=== PATIENT | male | born 1985 | race Caucasian/White ===

== ENCOUNTER 2016-08-22 21:54 | Emergency (ER) | payer SELFPAY ==
[2016-08-22 22:03] VITALS: BP 171/83
--- NOTE | 2016-08-23 00:44 | ED ---
mahamed Kumar Timothy, scribed for Shankar Zaragoza MD on 08/23/16 at 0032 . Throat Pain/Nasal Congestion - HPI Summary HPI Summary: Abrahan Tran is a 31 yo male presenting to [facility] with a food bolus in his throat made of chicken since 1830 today. Pt states he has had this "kind of happen before" and was able to get it to resolve on his own through drinking water. His most recent episode was 6 months ago. He is not in any current pain. He states that in the ED he coughed up the bolus, and his issues are resolved. He denies any PMHx. - History of Current Complaint Chief Complaint: EDForeignBodyEsophag Time Seen by Provider: 08/23/16 00:27 Hx Obtained From: Patient Onset/Duration: Sudden Onset, Lasting Hours, Still Present Severity: Moderate Associated Signs And Symptoms: Positive: FB Sensation - Allergies/Home Medications Allergies/Adverse Reactions: Allergies Allergy/AdvReac Type Severity Reaction Status Date / Time No Known Allergies Allergy Verified 08/22/16 22:05 PMH/Surg Hx/FS Hx/Imm Hx Cardiovascular History: Reports: Hx Hypertension Infectious Disease History: No Infectious Disease History: Denies: Traveled Outside the [place] in Last 30 Days - Family History Known Family History: Positive: Cardiac Disease, Hypertension, Diabetes - Social History Alcohol Use: None Substance Use Type: Reports: None Hx Tobacco Use: Yes Smoking Status (MU): Former Smoker Review of Systems Constitutional: Negative Eyes: Negative ENT: Other - food bolus Cardiovascular: Negative Respiratory: Negative Gastrointestinal: Negative Genitourinary: Negative Musculoskeletal: Negative Skin: Negative Neurological: Negative Psychological: Normal All Other Systems Reviewed And Are Negative: Yes Physical Exam Triage Information Reviewed: Yes Vital Signs On Initial Exam: Initial Vitals Temp Pulse Resp BP Pulse Ox 97.1 F 99 14 171/83 100 08/22/16 22:01 08/22/16 22:01 08/22/16 22:01 08/22/16 22:01 08/22/16 22:01 Vital Signs Reviewed: Yes Appearance: Positive: Well-Appearing, No Pain Distress Skin: Positive: Warm Head/Face: Positive: Normal Head/Face Inspection Eyes: Positive: BIGG ENT: Positive: Hearing grossly normal Neck: Positive: Supple Respiratory/Lung Sounds: Positive: Breath Sounds Present Cardiovascular: Positive: RRR Abdomen Description: Positive: Nontender, Soft Bowel Sounds: Positive: Present Musculoskeletal: Positive: Strength/ROM Intact Neurological: Positive: Sensory/Motor Intact, Alert, Oriented to Person Place, Time Diagnostics - Vital Signs Vital Signs Temp Pulse Resp BP Pulse Ox 08/22/16 22:03 97.1 F 108 14 171/83 100 08/22/16 22:01 97.1 F 99 14 171/83 100 - Laboratory Lab Statement: Any lab studies that have been ordered have been reviewed, and results considered in the medical decision making process. EENT Course/Dx - Course Assessment/Plan: Abrahan Castillo is a 31 yo male presenting to [facility] with esophageal foreign bodyt which resolved while waiting to be seen. After clinical examination he will be discharged home with esophageal foreign body and appropriate instructions. - Diagnoses Provider Diagnoses: Esophageal foreign body Discharge - Discharge Plan Condition: Stable Disposition: HOME Patient Education Materials: Esophageal Foreign Body (ED) Referrals: Non Staff,Doctor [Primary Care Provider] - Eugenio Cortez MD [Medical Doctor] - 2 Days Additional Instructions: Please follow up with Dr. Cortez regarding your visit to the emergency department today. Return to the emergency department with any new or recurring symptoms. The documentation as recorded by the mahamed avelar Timothy accurately reflects the service I personally performed and the decisions made by , Shankar Zaragoza MD.
== END 2016-08-23 01:20 | disposition home or self-care (01) ==
LOC: ED 21:54
DX: T18.128A Food in esophagus causing other injury, initial encounter (principal); X58.XXXA Exposure to other specified factors, initial encounter; Y93.9 Activity, unspecified; Y92.9 Unspecified place or not applicable; Z87.891 Personal history of nicotine dependence
CPT/HCPCS: 99281

== ENCOUNTER 2018-10-04 14:47 | Emergency (ER) | payer OTHER ==
--- NOTE | 2018-10-04 15:36 | ED ---
GI/ HPI - HPI Summary HPI Summary: This patient is a 33 year old M presenting to ED with a chief complaint of foreign object stuck in esophagus since 1430 today. The CC is described as a stuck burp. Patient was eating and felt the food stop going down. Patient was eating a corned-beef sandwich. He feels like the meat is stuck. This has happened before, but they did not figure out why food keeps getting stuck as he did not get an upper endoscopy. Last time this occurred was 3-4 years ago. Patient tried to drink soda to dislodge the food, but it added pressure and he threw up the soda. The patient rates the pain 3/10 in severity. Symptoms aggravated by fluids. Symptoms alleviated by nothing. Patient reports vomiting. Patient denies fever. PMHx of HTN. FHx of DM, cardiac disease, HTN. No surgical history. Patient does not drink alcohol or use substances but is an everyday tobacco smoker. - History of Current Complaint Chief Complaint: EDForeignBodyEsophag Time Seen by Provider: 10/04/18 15:12 Stated Complaint: FEELS LIKE HES CHOKING PER PT Hx Obtained From: Patient Onset/Duration: Started Minutes Ago - 30 min [employer] Severity: Mild Current Severity: Mild Pain Intensity: 3 Pain Characteristics: Pressure - After drinking soda Associated Signs and Symptoms: Positive: Vomiting. Negative: Fever Foreign Body: Esophageal Aggravating Factor(s): Liquids Alleviating Factor(s): Nothing - Allergy/Home Medications Allergies/Adverse Reactions: Allergies Allergy/AdvReac Type Severity Reaction Status Date / Time No Known Allergies Allergy Verified 10/04/18 14:54 Home Medications: Home Medications Lisinopril 10 mg PO DAILY 10/04/18 [History Confirmed 10/04/18] buPROPion HCl [Bupropion Xl] 150 mg PO DAILY 10/04/18 [History Confirmed ] PMH/Surg Hx/FS Hx/Imm Hx Cardiovascular History: Reports: Hx Hypertension - Surgical History Surgery Procedure, Year, and Place: None Infectious Disease History: No Infectious Disease History: Denies: Traveled Outside the [place] in Last 30 Days - Family History Known Family History: Positive: Cardiac Disease, Hypertension, Diabetes - Social History Alcohol Use: None Substance Use Type: Reports: None Hx Tobacco Use: Yes Smoking Status (MU): Current Every Day Smoker Review of Systems Negative: Fever Gastrointestinal: Other - Foreign object in esophagus Positive: Vomiting All Other Systems Reviewed And Are Negative: Yes Physical Exam - Summary Physical Exam Summary: GENERAL: Patient is a well-developed and nourished M who is appears uncomfortable in the stretcher. Patient is not in any acute respiratory distress. HEAD AND FACE: Normocephalic EYES: PERRLA, EOMI x 2. EARS: Hearing grossly intact. MOUTH: Spitting and protecting his airway NECK: Supple, trachea is midline, no adenopathy, no JVD, no carotid bruit. CHEST: Symmetric, no tenderness at palpation LUNGS: Clear to auscultation bilaterally. No wheezing or crackles. CVS: Regular rate and rhythm, S1 and S2 present, no murmurs or gallops appreciated. ABDOMEN: Soft, non-tender. Bowel sounds are normal. No abnormal abdominal pulsations. EXTREMITIES: Full ROM in all major joints, no edema, no cyanosis or clubbing. NEURO: Alert and oriented x 3. No acute neurological deficits. Speech is normal and follows commands. SKIN: Dry and warm Triage Information Reviewed: Yes Vital Signs On Initial Exam: Initial Vitals Temp Pulse Resp BP Pulse Ox 98 F 129 18 144/85 99 10/04/18 14:50 10/04/18 14:50 10/04/18 14:50 10/04/18 14:50 10/04/18 14:50 Vital Signs Reviewed: Yes Diagnostics - Vital Signs Vital Signs Temp Pulse Resp BP Pulse Ox 10/04/18 14:50 98 F 129 18 144/85 99 - Laboratory Result Diagrams: 10/04/18 15:26 10/04/18 15:26 Lab Statement: Any lab studies that have been ordered have been reviewed, and results considered in the medical decision making process. GIGU Course/Dx - Course Course Of Treatment: This patient is a 33 year old M presenting to ED with a chief complaint of foreign object stuck in esophagus since 1430 today. In the ED , bloodwork was obtained. Patient was seen and evaluated at bedside by GI. They were able to clear his food impaction. Patient will be discharged home with dx of esophageal food impaction. I discussed results with patient, and he reports feeling better. He is hemodynamically stable and safe for discharge. Strict return precautions given and he will otherwise follow up with a GI doctor. - Diagnoses Provider Diagnoses: Food impaction of esophagus - Physician Notifications Discussed Care Of Patient With: Eugenio Cortez Time Discussed With Above Provider: 15:24 Instructed by Provider To: MD Will See In ED - BON Noland, will consult the patient in the ED. Discharge - Sign-Out/Discharge Documenting (check all that apply): Patient Departure - Discharge Patient Received Moderate/Deep Sedation with Procedure: No - Discharge Plan Condition: Stable Disposition: HOME Prescriptions: Pantoprazole Sodium [Protonix] 20 mg PO DAILY #30 tablet. Pantoprazole TAB * [Protonix TAB*] 20 mg PO DAILY #30 tab Patient Education Materials: Food Impaction (ED) Referrals: Eugenio Cortez MD [Medical Doctor] - 3 Days Additional Instructions: Follow up with BON Noland, in 1-3 days. RETURN TO THE EMERGENCY DEPARTMENT FOR CHANGING OR WORSENING SYMPTOMS. - Billing Disposition and Condition Condition: STABLE Disposition: Home - Attestation Statements Document Initiated by Scribe: Yes Documenting Scribe: Michel Gibbons Provider For Whom Scribe is Documenting (Include Credential): Jasen Myers MD Scribe Attestation: Michel Kumar, scribed for Jasen Myers MD on 10/04/18 at 2048. Scribe Documentation Reviewed: Yes Provider Attestation: The documentation as recorded by the Michel avelar accurately reflects the service I personally performed and the decisions made by me, Jasen Myers MD Status of Scribe Document: Viewed
[2018-10-04 15:38] LABS: ABS Eosinophils 0.3 10^3/ul (0-0.6); ABS Lymphocytes 1.9 10^3/ul (1.0-4.8); ABS Monocytes 0.7 10^3/ul (0-0.8); ABS Neutrophils 6.9 10^3/ul (1.5-7.7); Eosinophil % 3.5 %; Hematocrit 44 % (42-52); Hemoglobin 14.7 g/dL (14.0-18.0); Lymphocyte % 19.5 %; Mean Corpuscular HGB Conc 34 g/dL (31-36); Mean Corpuscular Hemoglobin 26 pg (27-31); Mean Corpuscular Volume 78 fL (80-94); Mean Platelet Volume 7.1 fL (7.4-10.4); Platelet Count 292 10^3/uL (150-450); Red Blood Count 5.63 10^6 /uL (4.18-5.48); Red Cell Distribution Width 13 % (10.5-15); White Blood Count 9.8 10^3/uL (3.5-10.8)
[2018-10-04 15:46] LABS: Activated Partial Thrombo Time 26.6 seconds (26.0-36.3); INR 1.17 (0.82-1.09)
[2018-10-04 15:54] LABS: Albumin 4.6 g/dL (3.2-5.2); Albumin/Globulin Ratio 1.3 (1-3); BUN/Creatinine Ratio 10.4 (8-20); CRP High Sensitivity 4.61 mg/L (<2.00); Calcium 9.5 mg/dL (8.6-10.3); EGFR Non-African American 66.9 (>60); Globulin 3.6 g/dL (2-4); Potassium 3.6 mmol/L (3.5-5.0); Total Protein 8.2 g/dL (6.4-8.9)
[2018-10-04] MEDS ORDERED: Midazolam* 1 MG/ML 10 ML VIAL (10 MG) ONE (16:18)
[2018-10-04] MEDS ORDERED: fentaNYL* 50 MCG/ML 2 ML VIAL (100 MCG VIAL) ONE (16:18)
--- NOTE | 2018-10-04 18:31 | CONS ---
CONSULTATION REPORT: DATE OF CONSULT: 10/04/18 LOCATION: Consultation was performed in the emergency room in room 6. INDICATION: Dysphagia. NARRATIVE: Mr. Tran is a pleasant 33-year-old gentleman who has a history of esophageal foreign bodies in the past, who presents with sensation of something being stuck in his esophagus. He states that he was out [place] [employer] just an hour ago eating a corned beef sandwich and felt like the food became stuck and he tried to drink liquids to force it down and the liquid came back up. He is unable to swallow his own saliva at this time, he is spitting up into a cup. He does have mild chest pain. This did happen to him in the past in 2017, a chicken became stuck and he was able to vomit it out. He was recommended to have an endoscopy at that point; however, the patient has fear of doctors and procedures and decided to hold off. He has no allergies. No history of asthma. He does not drink alcohol. He does not smoke marijuana. He does smoke tobacco. No family history of esophageal issues. He does have acid reflux symptoms, namely heartburn every now and then, he takes Tums as needed. PAST MEDICAL HISTORY: Hypertension, anxiety. MEDICATIONS: Include: 1. Wellbutrin. 2. Lisinopril. ALLERGIES: None. FAMILY HISTORY: Diabetes, cardiac disease, hypertension. SOCIAL HISTORY: No alcohol in 8 months. No marijuana in 9 months. He smokes tobacco every day. REVIEW OF SYSTEMS: Twelve systems are reviewed, other than what mentioned in the HPI were unremarkable. PHYSICAL EXAM: Temperature is 98.0, blood pressure is 129/72, O2 sat is 100%, pulse is 116. General: Well-appearing male, sitting upright, spitting into a cup. Alert, oriented, pleasant, fluent. HEENT: Mucous membranes are moist without lesions, ulcers or exudate. Neck is supple. Trachea is midline. Head is normocephalic and atraumatic. He has multiple large earrings in. Lungs: Clear to auscultation bilaterally. No wheezes, rales or rhonchi. Abdomen: Positive bowel sounds, obese, soft, nontender, nondistended. No hepatosplenomegaly, masses, rebound or guarding. Skin is warm and dry. Numerous tattoos. DIAGNOSTIC STUDIES/LAB DATA: Labs show white count of 9.8, hemoglobin of 14.7, platelets of 292. INR is 1.17. Chemistry shows creatinine of 1.25, glucose of 197, alk phos was 128. ASSESSMENT AND PLAN: This is a pleasant 33-year-old gentleman with an esophageal foreign body. We had a long discussion regarding strictures, rings, eosinophilic esophagitis. At this point, he does need an urgent endoscopy, it will be performed in the emergency room. This was gone over extensively with him, he is understanding and agreeable. [id number]/[facility] #: [id number] [facility] CENTERLeo
[2018-10-04 19:05] VITALS: BP 112/72
--- NOTE | 2018-10-04 20:17 | PRO ---
PROCEDURE REPORT: DATE OF PROCEDURE: 10/04/18 PROCEDURE: EGD in the emergency room. INDICATION: Esophageal foreign body. MEDICATIONS GIVEN: 1. 175 mcg IV fentanyl. 2. 11 mg IV Versed. DESCRIPTION OF PROCEDURE: After the EGD procedure including the risks, benefits , and alternatives, not limited to perforation, surgery, and/or were explained to the patient, written consent was then obtained, IV medication was given, and a bite block was placed between the teeth. An Olympus gastroscope was then inserted into the patient's mouth and advanced down the esophagus, into the stomach, into the distal duodenum. In the esophagus, at the distal esophagus, there was a large clump of corn beef. I did insufflate the esophagus to open it a little bit and then the patient coughed and the corn beef slid down into the stomach and the obstruction was relieved. The scope was advanced through the GE junction into the body of the stomach. Retroflexed and forward views were unremarkable. Scope was advanced through a widely patent pylorus and duodenal bulb. Scope was then withdrawn into the esophagus where multiple rings were encountered. I did take biopsies to evaluate for eosinophilic esophagitis, which it does have the appearance of. Scope was then withdrawn from the patient. He tolerated the procedure well. He was returned to the care of the ED staff. IMPRESSION: 1. Complete upper endoscopy into the duodenum with esophageal foreign body removal and biopsies. 2. Presumed eosinophilic esophagitis, status post biopsies. 3. I will follow up on the biopsies. Report back to the patient at that time. [id number]/[id number] #: [id number] CECILIA
== END 2018-10-04 19:05 | disposition home or self-care (01) ==
LOC: ED 14:47
DX: T18.128A Food in esophagus causing other injury, initial encounter (principal); X58.XXXA Exposure to other specified factors, initial encounter; Y92.9 Unspecified place or not applicable; I10 Essential (primary) hypertension; F17.210 Nicotine dependence, cigarettes, uncomplicated; Z79.899 Other long term (current) drug therapy
CPT/HCPCS: 36415; 80053; 85025; 85610; 85730; 86141; 88305; 96374; 96375; 99156; 99157; 99285; J2250; J3010

== ENCOUNTER 2018-10-15 09:26 | Emergency (ER) | payer OTHER ==
[2018-10-15 10:34] VITALS: BP 121/78
--- NOTE | 2018-10-15 11:13 | UC ---
Throat Pain/Nasal Kevin HPI - HPI Summary HPI Summary: 33-year-old male presents with complaints of throat pain. States that 2 days ago he stifled sneeze and he felt a tearing sensation in his throat. States since that time he is having sharp pain whenever he swallows. Patient was seen in the emergency room on 10/04/2018 for a food bolus and had an EGD performed by Dr. Cortez to remove bolus. Dr. Cortez had some concern for eosinophilic esophagitis and some biopsies were taken at that time. Denies fever, chills, nasal congestion, runny nose, dysphagia, cough, shortness of breath, chest pain , abdominal pain, nausea, or vomiting. - History of Current Complaint Chief Complaint: UCGeneralIllness Stated Complaint: THROAT COMPLAINT Time Seen by Provider: 10/15/18 10:54 Hx Obtained From: Patient Pain Intensity: 6 - Allergies/Home Medications Allergies/Adverse Reactions: Allergies Allergy/AdvReac Type Severity Reaction Status Date / Time No Known Allergies Allergy Verified 10/15/18 10:25 PMH/Surg Hx/FS Hx/Imm Hx Cardiovascular History: Hypertension GI/ History: Gastroesophageal Reflux Psychological History: Anxiety, Depression - Surgical History Surgical History: None Surgery Procedure, Year, and Place: None - Family History Known Family History: Positive: Cardiac Disease, Hypertension, Diabetes - Social History Occupation: Employed Full-time Lives: With Family Alcohol Use: None Substance Use Type: None Smoking Status (MU): Smoker, Current Status Unknown Amount Used/How Often: vapes daily Review of Systems All Other Systems Reviewed And Are Negative: Yes Constitutional: Negative: Fever, Chills Skin: Positive: Negative ENT: Positive: Sore Throat. Negative: Ear Ache, Nasal Discharge, Sinus Congestion, Sinus Pain/Tenderness Respiratory: Negative: Shortness Of Breath, Cough Cardiovascular: Negative: Palpitations, Chest Pain Gastrointestinal: Negative: Abdominal Pain, Vomiting, Diarrhea, Nausea Genitourinary: Positive: Negative Musculoskeletal: Positive: Negative Neurological: Positive: Negative Is Patient Immunocompromised?: No Physical Exam - Summary Physical Exam Summary: GENERAL APPEARANCE: Well developed, well nourished, alert and cooperative, and appears to be in no acute distress. EYES: Conjunctiva clear. No drainage. EARS: External auditory canals and tympanic membranes clear, hearing grossly intact. NOSE: No nasal discharge. THROAT: Pharynx normal. No tonsilar inflammation, swelling, exudate, or lesions. Uvula midline. NECK: Neck supple, non-tender without lymphadenopathy. CARDIAC: Normal S1 and S2. No S3, S4 or murmurs. Rhythm is regular. There is no peripheral edema, cyanosis or pallor. Extremities are warm and well perfused. Capillary refill is less than 2 seconds. Peripheral pulses intact. LUNGS: Clear to auscultation without rales, rhonchi, wheezing or diminished breath sounds. ABDOMEN: Positive bowel sounds. Soft, nondistended, nontender. No guarding or rebound. No masses or hepatosplenomegally. MUSKULOSKELETAL: ROM intact to all extremities. No joint erythema or tenderness. Normal muscular development. Normal gait. SKIN: Skin normal color, texture and turgor with no lesions or eruptions. Triage Information Reviewed: Yes Vital Signs: Initial Vital Signs Temp 97.9 F 10/15/18 10:26 Pulse 59 10/15/18 10:26 Resp 18 10/15/18 10:26 BP 121/78 10/15/18 10:26 Pulse Ox 100 10/15/18 10:26 Vital Signs Reviewed: Yes Throat Pain/Nasal Course/Dx - Course Course Of Treatment: 33-year-old male presents with complaints of throat pain. States that 2 days ago he stifled sneeze and he felt a tearing sensation in his throat. States since that time he is having sharp pain whenever he swallows. Patient was seen in the emergency room on 10/04/2018 for a food bolus and had an EGD performed by Dr. Cortez to remove bolus. Dr. Cortez had some concern for eosinophilic esophagitis and some biopsies were taken at that time. Denies fever, chills, nasal congestion, runny nose, dysphagia, cough, shortness of breath, chest pain , abdominal pain, nausea, or vomiting. Afebrile. Vital signs stable. He had an overall unremarkable exam with a normal pharynx without tonsillar swelling, exudate, or cervical lymphadenopathy. I spoke with Dr. Cortez regarding the patient's complaints. He requested that we obtain a PA and lateral chest x-ray which was interpreted by the radiologist as normal. Dr. Cortez is recommending that he maintain a soft diet for the next few days and to call the office to arrange for a follow up appointment. I reviewed the x-ray findings and Dr. Cortez's recommendations with the patient. Anticipatory guidance warning symptoms were also reviewed. Patient verbalizes understanding and agrees with plan of care. - Differential Dx/Diagnosis Differential Diagnosis/HQI/PQRI: Pharyngitis, Tonsillitis, Other - esophogeal perforation Provider Diagnosis: Throat pain - Physician Notification/Consults Discussed Patient Care With: Eugenio Cortez Time Discussed With Above Provider: 11:00 Instructed by Provider To: Other - Dr. Cortez requested that we obtain a PA and LAT CXR which was interpretted by the radiologist as normal. Dr. Cortez recommends that the patient maintain a soft diet for the next few days and call the office to schedule a follow up appointment. Discharge - Sign-Out/Discharge Documenting (check all that apply): Patient Departure All imaging exams completed and their final reports reviewed: No Studies - Discharge Plan Condition: Stable Disposition: HOME Patient Education Materials: GI (Gastrointestinal) Soft Diet (ED) Referrals: No Primary Care Phys,NOPCP [Primary Care Provider] - Eugenio Cortez MD [Medical Doctor] - (Dr. Cortez's office will contact you.) Additional Instructions: The chest x-ray performed in the clinic today was normal. I spoke with Dr. Cortez regarding your symptoms and about the chest x-ray results and he feels that no further studies are needed at this time. Maintain a soft diet for the next few days. Call Dr. Cortez's office at to schedule a follow up appointment. Seek immediate medical attention in the emergency room if you haven't severe chest pain, shortness of breath, you are unable to swallow, or have any worsening of symptoms. - Billing Disposition and Condition Condition: STABLE Disposition: Home
== END 2018-10-15 12:00 | disposition home or self-care (01) ==
LOC: UCEAST 09:26
DX: R07.0 Pain in throat (principal); I10 Essential (primary) hypertension; K21.9 Gastro-esophageal reflux disease without esophagitis; F41.9 Anxiety disorder, unspecified; F32.9 Major depressive disorder, single episode, unspecified; F17.290 Nicotine dependence, other tobacco product, uncomplicated
CPT/HCPCS: 71046; 99211; G0463

== ENCOUNTER 2019-02-01 10:49 | Emergency (ER) | payer OTHER ==
--- NOTE | 2019-02-01 14:02 | UC ---
Respiratory Complaint HPI - HPI Summary HPI Summary: Patient is 33 year old male, who present today to the urgent care with cough and congestion for past 1 week. He reports his symptoms onset on Thursday 01/25. He is that he states not getting better. Vapes everyday. He reports sore throat and congestion and feels fullness and itchy ears. Cough productive of yellowish sputum. Had fever about 2 times- MAXIMUM TEMPERATURE was 99.8 Fahrenheit and he took ibuprofen as needed.. No chest pain or shortness of breath He has been taking [id number] medications without much relief. - History of Current Complaint Chief Complaint: UCGeneralIllness Stated Complaint: CONGESTED Time Seen by Provider: 02/01/19 12:02 Hx Obtained From: Patient Pain Intensity: 0 - Allergies/Home Medications Allergies/Adverse Reactions: Allergies Allergy/AdvReac Type Severity Reaction Status Date / Time No Known Allergies Allergy Verified 02/01/19 10:57 PMH/Surg Hx/FS Hx/Imm Hx - Additional Past Medical History Additional PMH: Past Medical History : Hypertension Past Surgical History: No Past History of Procedure Family History : non contributory Social History :No alcohol, is cigarette, Vaping, no drug use. - Surgical History Surgical History: None Surgery Procedure, Year, and Place: None - Family History Known Family History: Positive: Cardiac Disease, Hypertension, Diabetes, Non- Contributory - Social History Alcohol Use: None Substance Use Type: None Smoking Status (MU): Smoker, Current Status Unknown Type: eCigarettes Amount Used/How Often: vapes daily Review of Systems All Other Systems Reviewed And Are Negative: Yes Constitutional: Positive: Fever, Fatigue Skin: Positive: Negative Eyes: Positive: Negative ENT: Positive: Sore Throat, Ear Ache, Sinus Congestion Respiratory: Positive: Cough - Productive of sputum Cardiovascular: Positive: Negative Gastrointestinal: Positive: Negative Genitourinary: Positive: Negative Motor: Positive: Negative Neurovascular: Positive: Negative Musculoskeletal: Positive: Negative Neurological: Positive: Negative Psychological: Positive: Negative Is Patient Immunocompromised?: No Physical Exam - Summary Physical Exam Summary: Physical Exam: Const: Appears well. No signs of apparent distress present. Alert and oriented x 3. Musculo: Walks with a normal gait. Head/Face: Atraumatic, normocephalic on inspection. Eyes: EOMI and PERRLA in both eyes. Conjunctivae clear. No discharge noted ENT: Hearing normal, TM normal appearing bilaterally No tenderness to palpation on maxillary and frontal sinus. There is pharyngeal erythema without any exudates . Uvula is midline. Anterior cervical ymphadenopathy noted. Respiratory: Respirations are unlabored. Lungs clear to auscultation bilaterally, no wheezing , rhonchi or rales noted . CVS: Regular rate and Rhythm, S1S2 normal , no murmurs identified. Extremities: Peripheral circulation is grossly normal. Pulses 2+ Abdomen : Soft non tender , nondistended , Bowel sounds present . No guarding , rebound tenderness or rigidity noted. Skin: No lesions or rash located on the upper extremities or on the lower extremities. Neuro: Cranial nerves II to XII intact, motor and sensory intact. DTR Intact bilaterally. Mood is normal. Affect is normal. Triage Information Reviewed: Yes Vital Signs: Initial Vital Signs Temp 98.6 F 02/01/19 10:58 Pulse 81 02/01/19 10:58 Resp 16 02/01/19 10:58 BP 122/65 02/01/19 10:58 Pulse Ox 99 02/01/19 10:58 Vital Signs Reviewed: Yes Respiratory Course/Dx - Course Course Of Treatment: During the visit today, we discussed the findings and discussed the option of testing for strep but his throat does not look clinically worse and possibly she might have atypical pneumonia and plan to treat it . I will prescribe the medication to the pharmacy . Patient expressed understanding . - Differential Dx/Diagnosis Provider Diagnosis: Pharyngitis, Atypical pneumonia Discharge ED - Sign-Out/Discharge Documenting (check all that apply): Patient Departure All imaging exams completed and their final reports reviewed: No Studies - Discharge Plan Condition: Stable Disposition: HOME Prescriptions: Azithromyxin RAMIN (NF) [Z-Ramin (Zithromax) 250 mg tabs #6] 2 tab PO .TODAY, THEN 1 DAILY #6 tab Patient Education Materials: Pharyngitis (ED), Pneumonia (ED) Referrals: Michel Jewell MD [Primary Care Provider] - 1 Week Additional Instructions: Please start taking the medication as prescribed to the pharmacy . Maintain hydration throat lozenges as needed Salt water gargles Tylenol or ibuprofen as needed for fever Follow up with your primary care doctor in 1 week if needed Patients blood pressure slightly high in Urgent care today, plan follow up with PCP for better control Return to Urgent care / ER if symptoms get worse. - Billing Disposition and Condition Condition: STABLE Disposition: Home
[2019-02-01 14:13] VITALS: BP 141/79
== END 2019-02-01 14:10 | disposition home or self-care (01) ==
LOC: UCEAST 10:49
DX: J02.9 Acute pharyngitis, unspecified (principal); J18.9 Pneumonia, unspecified organism; I10 Essential (primary) hypertension; F17.210 Nicotine dependence, cigarettes, uncomplicated
CPT/HCPCS: 99212; G0463

== ENCOUNTER 2019-03-11 12:04 | Emergency (ER) | payer SELFPAY ==
[2019-03-11 14:25] VITALS: BP 146/87
--- NOTE | 2019-03-11 14:31 | UC ---
Nausea/Vomiting/Diarrhea HPI - HPI Summary HPI Summary: Patient is a 33-year-old male presenting with postnasal drip that began on Saturday. States the drainage was making him nauseous and he began to throw up on Saturday so he stayed home from work. States his diarrhea began this morning. States it is looser stools, not watery. Denies abdominal pain and blood in the stool. Denies decreased appetite and fluid intake. Patient states postnasal drip and vomiting have both resolved. Patient denies fever, chills, headaches, and nausea. Patient adds that he has missed work for 3 days and now needs a note for an excuse. - History of Current Complaint Chief Complaint: UCGI Stated Complaint: diarrhea, AND VOMITING Hx Obtained From: Patient Pain Intensity: 0 - Allergies/Home Medications Allergies/Adverse Reactions: Allergies Allergy/AdvReac Type Severity Reaction Status Date / Time No Known Allergies Allergy Verified 03/11/19 12:19 PMH/Surg Hx/FS Hx/Imm Hx Previously Healthy: Yes - Surgical History Surgical History: None Surgery Procedure, Year, and Place: None - Family History Known Family History: Positive: Cardiac Disease, Hypertension, Diabetes, Non- Contributory - Social History Alcohol Use: Rare Substance Use Type: None Smoking Status (MU): Smoker, Current Status Unknown Type: eCigarettes Amount Used/How Often: vapes daily Review of Systems All Other Systems Reviewed And Are Negative: Yes Constitutional: Positive: Negative ENT: Positive: Nasal Discharge - Postnasal drip. Negative: Sore Throat, Ear Ache, Sinus Congestion, Sinus Pain/Tenderness Respiratory: Positive: Negative. Negative: Shortness Of Breath, Cough Cardiovascular: Positive: Negative. Negative: Palpitations, Chest Pain Gastrointestinal: Positive: Vomiting, Diarrhea. Negative: Abdominal Pain, Nausea Genitourinary: Positive: Negative Musculoskeletal: Positive: Negative Neurological: Positive: Negative Physical Exam Triage Information Reviewed: Yes Appearance: Well-Appearing, No Pain Distress, Well-Nourished Vital Signs: Initial Vital Signs Temp 99.7 F 03/11/19 12:14 Pulse 86 03/11/19 12:14 Resp 18 03/11/19 12:14 BP 138/84 03/11/19 12:14 Pulse Ox 100 03/11/19 12:14 Vital Signs Reviewed: Yes Eyes: Positive: Conjunctiva Clear ENT: Positive: Hearing grossly normal, Pharynx normal, Nasal drainage - PND noted, TMs normal, Uvula midline. Negative: Pharyngeal erythema, Nasal congestion, Tonsillar swelling, Tonsillar exudate, Sinus tenderness Neck exam: Normal Neck: Positive: Supple, Nontender, No Lymphadenopathy Respiratory Exam: Normal Respiratory: Positive: Lungs clear, Normal breath sounds, No respiratory distress Cardiovascular Exam: Normal Cardiovascular: Positive: RRR Abdominal Exam: Normal Abdomen Description: Positive: Nontender, Soft Bowel Sounds: Positive: Present Neurological: Positive: Alert Psychological: Positive: Age Appropriate Behavior Naus/Vom/Diarrhea Course/Dx - Course Course Of Treatment: Patient with normal vital signs and PE findings. I educated patient on postnasal drip and instructed to take [id number] decongestants if it persists. Informed him that diarrhea should resolve within a few days and to maintain fluid and fiber intake. Instructed to follow up with PCP if symptoms persist or go to ED if they worsen. Patient voiced understanding and agreed with the treatment plan. - Differential Dx/Diagnosis Provider Diagnosis: Post-nasal drip, Acute diarrhea Condition At Discharge: Stable Discharge ED - Sign-Out/Discharge Documenting (check all that apply): Patient Departure All imaging exams completed and their final reports reviewed: No Studies - Discharge Plan Condition: Stable Disposition: HOME Patient Education Materials: Acute Diarrhea (ED), Postnasal Drip (DC) Forms: *Work Release Referrals: Michel Jewell MD [Primary Care Provider] - If Needed Additional Instructions: You may take over the counter decongestants if your post nasal drip continues. Your diarrhea should resolve on its own. Make sure you are drinking plenty of fluids and increasing your fiber intake. Follow up with your PCP if your symptoms persist. - Billing Disposition and Condition Condition: STABLE Disposition: Home
== END 2019-03-11 14:28 | disposition home or self-care (01) ==
LOC: UCEAST 12:04
DX: R09.82 Postnasal drip (principal); R19.7 Diarrhea, unspecified; F17.290 Nicotine dependence, other tobacco product, uncomplicated; R11.0 Nausea
CPT/HCPCS: 99211; G0463